=== PATIENT | male | born 1990 | race Caucasian/White ===

== ENCOUNTER 2017-02-26 19:54 | Emergency (ER) | payer BC ==
[2017-02-26 21:30] LABS: Urine Bacteria Absent (Absent); Urine Bilirubin Negative (Negative); Urine Glucose Negative (Negative); Urine Nitrite Negative (Negative)
[2017-02-26 22:26] VITALS: BP 146/85
--- NOTE | 2017-02-26 22:40 | ED ---
Shannon Lui Erika, scribed for Elsa Brannon MD on 02/26/17 at 2117 . GI/ HPI - HPI Summary HPI Summary: Patient is a 26-year-old male presenting to the ED with a CC of sudden loss of erection during intercourse at 18:00 today. Patient reports that he felt a "pop " in his penis and then he lost the erection, and was not able to become erect again. Patient denies any associated pain, swelling, deformity, and bruising. He reports his penis looks normal. He also denies any penile discharge, pain in the testes or scrotum, fever, nausea, or vomiting. Patient states he has urinated since the event, and there was no hematuria. He denies similar symptoms in the past. Hx asthma. FHx COPD, HTN. Patient does not smoke cigarettes or drink daily. - History of Current Complaint Chief Complaint: EDUrogenitalProblems Time Seen by Provider: 02/26/17 20:38 Stated Complaint: GENERAL Hx Obtained From: Patient, Family/[employer] - Girlfriend Onset/Duration: Started Hours Ago, Still Present Timing: Constant Severity: Mild Current Severity: None Pain Intensity: 0 Associated Signs and Symptoms: Positive: Negative. Negative: Hematuria Additional Signs & Symptoms: Negative: Penile Swelling, Penile Discharge - Allergy/Home Medications Allergies/Adverse Reactions: Allergies Allergy/AdvReac Type Severity Reaction Status Date / Time No Known Allergies Allergy Verified 02/26/17 19:59 PMH/Surg Hx/FS Hx/Imm Hx Endocrine/Hematology History: Denies: Hx Diabetes Respiratory History: Reports: Hx Asthma Infectious Disease History: No Infectious Disease History: Denies: Traveled Outside the [place] in Last 30 Days - Family History Known Family History: Positive: Hypertension, Respiratory Disease - COPD - Social History Alcohol Use: None Hx Substance Use: No Substance Use Type: Reports: None Hx Tobacco Use: No Smoking Status (MU): Never Smoked Tobacco Review of Systems Negative: Fever Negative: Vomiting, Nausea Genitourinary: Other - "pop" in penis during intercourse, loss of erection Negative: dysuria, hematuria All Other Systems Reviewed And Are Negative: Yes Physical Exam Triage Information Reviewed: Yes Vital Signs On Initial Exam: Initial Vitals Temp Pulse Resp BP Pulse Ox 97.7 F 114 20 165/81 100 02/26/17 19:57 02/26/17 19:57 02/26/17 19:57 02/26/17 19:57 02/26/17 19:57 Vital Signs Reviewed: Yes Appearance: Positive: Well-Appearing, No Pain Distress, Well-Nourished Skin: Positive: Warm, Skin Color Reflects Adequate Perfusion, Soft Head/Face: Positive: Normal Head/Face Inspection Eyes: Positive: EOMI, MARCO, Conjunctiva Clear ENT: Positive: Hearing grossly normal Neck: Positive: Supple, Nontender Respiratory/Lung Sounds: Positive: Clear to Auscultation, Breath Sounds Present. Negative: Rales, Rhonchi, Wheezes Cardiovascular: Positive: Pulses are Symmetrical in both Upper and Lower Extremities, Tachycardia - at 114 bpm on triage. Negative: Murmur, Rub Abdomen Description: Positive: Nontender, No Organomegaly, Soft. Negative: Distended, Guarding, Peritoneal Signs Bowel Sounds: Positive: Present Male Genital Exam: Positive: normal genitalia - flaccid penis, other - No edema. Negative: erythema, testicular tenderness (R), testicular tenderness (L) Musculoskeletal: Positive: Strength/ROM Intact Neurological: Positive: Sensory/Motor Intact, Alert, Oriented to Person Place, Time, Normal Gait. Negative: Cerebellar Dysfunction Psychiatric: Positive: Affect/Mood Appropriate Diagnostics - Vital Signs Vital Signs Temp Pulse Resp BP Pulse Ox 02/26/17 19:57 97.7 F 114 20 165/81 100 - Laboratory Lab Results: Lab Results 02/26/17 Range/Units 21:14 Urine Color Straw Urine Appearance Clear Urine pH 7.0 (5-9) Ur Specific [place] 1.013 (1.010-1.030) Urine Protein Negative (Negative) Urine Ketones Negative (Negative) Urine Blood Negative (Negative) Urine Nitrate Negative (Negative) Urine Bilirubin Negative (Negative) Urine Urobilinogen Negative (Negative) Ur Leukocyte Esterase Trace H (Negative) Urine WBC (Auto) Trace(0-5/hpf) (Absent) Urine RBC (Auto) Trace(0-2/hpf) (Absent) Urine Bacteria Absent (Absent) Urine Glucose Negative (Negative) Lab Statement: Any lab studies that have been ordered have been reviewed, and results considered in the medical decision making process. Re-Evaluation - Re-Evaluation First Eval Re-Evaluation Time: 21:28 Comment: Re-checked for swelling as pt noted to nurse that there may be swelling. There is no swelling. Pt, girlfriend, and nurse agree. GIGU Course/Dx - Course Assessment/Plan: A 26 y/o M presents after losing an erection during intercourse. He denies any pain, swelling, bruising or hematuria. UA is WNL. Dr. Winston consulted, and pt can follow up with Dr. Winston. Pt instructed to return to the ED should he develop bruising, swelling, or hematuria. - Diagnoses Provider Diagnoses: Failure of erection - Physician Notifications Discussed Care Of Patient With: Dr. Winston (Urology) at 21:05 - seems like this is not a case of a penis fracture. There is really no indication for imaging studies at this point. Recommends that if he develop symptoms of swelling, bruising, blood in the urine to come straight back. Otherwise, he can call him in the office tomorrow for follow up. Discharge - Discharge Plan Condition: Stable Disposition: HOME Patient Education Materials: Normal Exam (ED) Referrals: Diego Winston MD [Medical Doctor] - Additional Instructions: Please call Dr. Winston in the morning for follow up. The documentation as recorded by the Shannon hughes Erika accurately reflects the service I personally performed and the decisions made by , Elsa Brannon MD.
== END 2017-02-26 22:09 | disposition home or self-care (01) ==
LOC: ED 19:54
DX: N52.9 Male erectile dysfunction, unspecified (principal)
CPT/HCPCS: 81003; 81015; 87086; 99282